=== PATIENT | female | born 1960 | race African-American/Black ===

== ENCOUNTER 2017-06-12 10:51 | Emergency (ER) | payer MEDICAID, SELFPAY ==
[~2017-06-12] VITALS: Ht 170.2 cm; Wt 63.5 kg
[~2017-06-12 10:51] MED LIST: BENADRYL25 MG ORAL; IBUPROFEN600 MG ORAL; KEFLEX500 MG ORAL; PREDNISONE20 MG ORAL; VERAPAMIL HCL40 MG ORAL
[2017-06-12 11:21] VITALS: BP 179/93
[2017-06-12 11:30] VITALS: BP 179/93
--- NOTE | 2017-06-12 15:17 | Emergency Room Report ---
History of Present Illness General Chief Complaint: Earache Source: Patient, Medical Record Present Illness HPI 56-year-old female presenting with left jaw and left ear pain for 3 days. Patient states it hurts more when she chews. Denies any discharge from the left ear, no trouble hearing, no fever or chills. No trauma Allergies: Coded Allergies: No Known Allergies (Unverified , 10/06/13) Patient History Past Medical History: see triage record Past Surgical History: none Pertinent Family History: none Reviewed Nursing Documentation: PMH: Agreed, PSxH: Agreed Nursing Documentation-PMH Hx Hypertension: Yes Review of Systems All Other Systems: negative except mentioned in HPI Physical Exam Vital Signs Date Time Temp Pulse Resp B/P (MAP) Pulse Ox O2 Delivery O2 Flow Rate FiO2 06/12/17 10:56 97.5 101 16 204/94 100 Room Air Sp02 EP Interpretation: reviewed, normal General Appearance: normal inspection, well appearing, no apparent distress, alert, GCS 15, non-toxic Head: normocephalic, atraumatic Eyes: bilateral eye normal inspection, bilateral eye PERRL, bilateral eye EOMI ENT: other - Left ear and right ear are no abnormalities, TM are normal, left TMJ tender palpation, no erythema, no mastoid tenderness, full range of motion, no malocclusion Neck: normal inspection, full range of motion, supple Respiratory: normal inspection, lungs clear, normal breath sounds, no respiratory distress, no retraction, no wheezing, speaking full sentences, chest symmetrical Cardiovascular #1: normal inspection, regular rate, rhythm, no edema, normal capillary refill Cardiovascular #2: 2+ radial (R), 2+ radial (L) Gastrointestinal: normal inspection, non tender, soft, non-distended, no guarding Musculoskeletal: normal inspection, back normal, normal range of motion, non- tender Neurologic: normal inspection, alert, oriented x3, responsive, motor strength/ tone normal, sensory intact, normal gait, speech normal Psychiatric: normal inspection, judgement/insight normal, memory normal Skin: normal inspection, normal color, no rash, warm/dry, well hydrated, normal turgor Medical Decision Making Diagnostic Impression: Primary Impression: TMJ arthritis Additional Impression: Earache, left ER Course 56 yo F with L sided ear ache/tmj pain per physical exam does not appear to be AOM/otitis externa/cellulitis possible TMJ arthritis plan tylenol in ED Dispo DCed home. told to fu with pmd in 3 days Last Vital Signs Date Time Temp Pulse Resp B/P (MAP) Pulse Ox O2 Delivery O2 Flow Rate FiO2 06/12/17 11:30 87 18 179/93 100 06/12/17 11:21 97.7 Room Air Disposition: HOME, SELF-CARE Condition: Stable Referrals: NOT CHOSEN IPA/MD,REFERRING (PCP) Patient Instructions: Temporomandibular Joint Syndrome, Earache Additional Instructions: PLEASE SEE YOUR DOCTOR IN 3-4 DAYS. Luci Macdonald M.D. Jun 12, 2017 15:17
== END 2017-06-12 11:35 | disposition home or self-care (01) ==
LOC: EMR 11:00
DX: M26.69 Other specified disorders of temporomandibular joint (principal); H92.02 Otalgia, left ear; I10 Essential (primary) hypertension
CPT/HCPCS: 99283